=== PATIENT | female | born 1995 | race Two or more races ===

== ENCOUNTER 2016-11-09 21:21 | Emergency (ER) | payer SELFPAY ==
[2016-11-09 23:08] VITALS: BP 126/67
== END 2016-11-09 23:08 | disposition home or self-care (01) ==
LOC: ED 21:21
DX: S61.213A Laceration without foreign body of left middle finger without damage to nail, initial encounter (principal); W26.0XXA Contact with knife, initial encounter; Y93.89 Activity, other specified; Y99.8 Other external cause status; Y92.89 Other specified places as the place of occurrence of the external cause
CPT/HCPCS: 90715